=== PATIENT | male | born 1980 | race Caucasian/White ===

== ENCOUNTER 2018-04-26 21:48 | Inpatient (IN) ==
[2018-04-26] MEDS ORDERED: Sod Chloride 0.9% Inj 1,000 ML IV.SIG ONE (23:16)
[2018-04-26] MEDS ORDERED: Morphine Inj 4 MG/ML Vial IV.PUSH ONE (23:16)
--- NOTE | 2018-04-26 23:23 | ED ---
HPI General Chief Complaint: Abdominal Pain Stated Complaint: gu Time Seen by Provider: 04/26/18 23:16 Source: patient and old records reviewed Mode of arrival: ambulatory Limitations: no limitations History of Present Illness HPI narrative: Patient is a 37-year-old male with no medical history history of IV drug use presented with complaint of really dark urine and left flank pain. Denies any history of stones. Denies any alcohol abuse. Admits to doing Dilaudid earlier today. MD complaint: Reports flank pain Onset (ago): hour(s) (6) Pain Consistency: constant Location: Reports L flank Severity scale (1-10): 10 Quality: Reports stabbing Radiation: Reports none Migration to: Reports no migration Relieving factors: nothing Associated symptoms: Reports other (Dark urine) Related Data Home Medications Medication Instructions Recorded Confirmed No Known Home Medications 04/26/18 04/26/18 Allergies Allergy/AdvReac Type Severity Reaction Status Date / Time penicillin G Allergy Unknown does not Unverified 02/07/17 14:48 know Review of Systems ROS: all other systems reviewed are negative [facility] Medical History Medical History History of wisdom tooth extraction (Acute) Patient denies significant medical history (Acute) Social History Social History Substance History: Active Abuse Smoking Status: Current every day smoker Tobacco Type: Cigarettes How Often Do You Have a Drink Containing Alcohol: Never Recent Travel in [facility] within the Last 8 Weeks: No Recent Out of Country Travel within the Last 8 Weeks: No Substance Abuse Detail Opiates: Substance Use Status: Active Route Used Substance Abuse: Intravenously Reason for Use: Feels Good and Get High Immunization History Tetanus Immunization: Unsure Exam Narrative Exam Narrative: GENERAL: Alert and oriented in no distress SKIN: Focused skin assessment warm/dry. HEAD: Atraumatic. Normocephalic. EYES: Pupils equal and round. No scleral icterus. No injection or drainage. ENT: No nasal bleeding or discharge. Mucous membranes pink and moist. NECK: Trachea midline. No JVD. CARDIOVASCULAR: Regular rate and rhythm. No murmur appreciated. RESPIRATORY: No accessory muscle use. Clear to auscultation. Breath sounds equal bilaterally. GASTROINTESTINAL: Abdomen soft, non-tender, nondistended. Hepatic and splenic margins not palpable. MUSCULOSKELETAL: No obvious deformities. No clubbing. No cyanosis. No edema. NEUROLOGICAL: Awake and alert. No obvious cranial nerve deficits. Motor grossly within normal limits. Normal speech. PSYCHIATRIC: Appropriate mood and affect; insight and judgment normal. Course Initial Documented Vital Signs Temperature 98.2 F 04/26/18 22:12 Pulse Rate 79 04/26/18 22:12 Respiratory Rate 16 04/26/18 22:12 Blood Pressure 138/83 04/26/18 22:12 Pulse Oximetry 98 04/26/18 22:12 Last Documented Vital Signs Temperature 98.2 F 04/26/18 22:12 Pulse Rate 79 04/26/18 22:12 Respiratory Rate 18 04/27/18 04:17 Blood Pressure 138/83 04/26/18 22:12 Pulse Oximetry 98 04/26/18 22:12 Medical Decision Making MDM Narrative Medical decision making narrative: Patient with markedly elevated liver enzymes suggestive of acute hepatitis. There is no signs of obstruction of the biliary tree on ultrasound. His CT abdomen pelvis was unremarkable. Patient denies any history of alcohol abuse and his MCV appears to be within normal limits. He does admit to IV drug use and is possible he may be having hepatitis C. Medical Screen Exam Complete: Yes Emergency Medical Condition: Yes Medical Records Medical records reviewed: Yes I reviewed the patient's medical records. Lab Data Lab results reviewed: Yes I reviewed the patient's lab results. Result diagrams: 04/26/18 23:30 04/26/18 23:30 Lab Results 04/26/18 04/26/18 04/26/18 Range/Units 23:30 23:30 23:30 WBC 8.9 (4.0-11.0) th/mm3 RBC 5.20 (4.50-5.90) mil/mm3 Hgb 15.6 (13.0-17.0) gm/dL Hct 45.5 (39.0-51.0) % MCV 87.4 (80.0-100.0) fL MCH 30.0 (27.0-34.0) pg MCHC 34.3 (32.0-36.0) % RDW 12.8 (11.6-17.2) % Plt Count 136 L (150-450) th/mm3 MPV 10.4 (7.0-11.0) fL Neut % (Auto) 78.8 H (16.0-70.0) % Lymph % (Auto) 12.1 (9.0-44.0) % Camp % (Auto) 6.9 (0.0-8.0) % Eos % (Auto) 1.8 (0.0-4.0) % Baso % (Auto) 0.4 (0.0-2.0) % Neut # (Auto) 7.0 (1.8-7.7) th/mm3 Lymph # (Auto) 1.1 (1.0-4.8) th/mm3 Camp # (Auto) 0.6 (0.0-0.9) th/mm3 Eos # (Auto) 0.2 (0.0-0.4) th/mm3 Baso # (Auto) 0.0 (0.0-0.2) th/mm3 WBC Differential . Differential Comment Auto diff final Sodium 134 L (136-145) meq/L Potassium 3.9 (3.5-5.1) meq/L Chloride 98 (98-107) meq/L Carbon Dioxide 27.4 (21.0-32.0) meq/L Anion Gap 9 (5-15) meq/L BUN 15 (7-18) mg/dL Creatinine 0.89 (0.60-1.30) mg/dL Estimated GFR Greater than 89 (>89) mL/min Random Glucose 92 (74-106) mg/dL Calcium 9.0 (8.5-10.1) mg/dL Total Bilirubin (0.2-1.0) mg/dL Direct Bilirubin (0.0-0.2) mg/dL Indirect Bilirubin (0.0-0.8) mg/dL AST (15-37) U/L ALT (12-78) U/L Alkaline Phosphatase (45-117) U/L Total Creatine Kinase 116 (39-308) U/L Total Protein (6.4-8.2) g/dL Albumin (3.4-5.0) g/dL Lipase (73-393) U/L Urine Color Chen (Yellw/Straw) Urine Clarity Clear (Clear) Urine pH 5.0 (5.0-8.5) Ur Specific Rake 1.020 (1.002-1.035) Urine Protein Negative (Neg-Trace) mg/dL Urine Glucose (UA) Negative (Negative) mg/dL Urine Ketones Trace H (Negative) mg/dL Urine Occult Blood Negative (Negative) Urine Nitrate Negative (Negative) Urine Bilirubin Small H (Negative) Urine Ictotest Positive H (Negative) Urine Urobilinogen 4 or greater (Less than 2) mg/dL Ur Leukocyte Esterase Negative (Negative) Urine WBC Less than 1 (0-5) /hpf Calcium Oxalate Crystal Rare H (None) /hpf Hyaline Casts 3 (0-3) /lpf Urine Mucus Few H (Occasional) /lpf Micro UA Comment Culture not ind Ur Microscopic Review Not Reportable Urine Culture Comments Culture not ind 04/26/18 04/26/18 Range/Units 23:30 23:30 WBC (4.0-11.0) th/mm3 RBC (4.50-5.90) mil/mm3 Hgb (13.0-17.0) gm/dL Hct (39.0-51.0) % MCV (80.0-100.0) fL MCH (27.0-34.0) pg MCHC (32.0-36.0) % RDW (11.6-17.2) % Plt Count (150-450) th/mm3 MPV (7.0-11.0) fL Neut % (Auto) (16.0-70.0) % Lymph % (Auto) (9.0-44.0) % Camp % (Auto) (0.0-8.0) % Eos % (Auto) (0.0-4.0) % Baso % (Auto) (0.0-2.0) % Neut # (Auto) (1.8-7.7) th/mm3 Lymph # (Auto) (1.0-4.8) th/mm3 Camp # (Auto) (0.0-0.9) th/mm3 Eos # (Auto) (0.0-0.4) th/mm3 Baso # (Auto) (0.0-0.2) th/mm3 WBC Differential Differential Comment Sodium (136-145) meq/L Potassium (3.5-5.1) meq/L Chloride (98-107) meq/L Carbon Dioxide (21.0-32.0) meq/L Anion Gap (5-15) meq/L BUN (7-18) mg/dL Creatinine (0.60-1.30) mg/dL Estimated GFR (>89) mL/min Random Glucose (74-106) mg/dL Calcium (8.5-10.1) mg/dL Total Bilirubin 5.4 H (0.2-1.0) mg/dL Direct Bilirubin 4.1 H (0.0-0.2) mg/dL Indirect Bilirubin 1.3 H (0.0-0.8) mg/dL AST 838 H (15-37) U/L ALT 1711 H (12-78) U/L Alkaline Phosphatase 215 H (45-117) U/L Total Creatine Kinase (39-308) U/L Total Protein 8.6 H (6.4-8.2) g/dL Albumin 4.0 (3.4-5.0) g/dL Lipase 36 L (73-393) U/L Urine Color (Yellw/Straw) Urine Clarity (Clear) Urine pH (5.0-8.5) Ur Specific Rake (1.002-1.035) Urine Protein (Neg-Trace) mg/dL Urine Glucose (UA) (Negative) mg/dL Urine Ketones (Negative) mg/dL Urine Occult Blood (Negative) Urine Nitrate (Negative) Urine Bilirubin (Negative) Urine Ictotest (Negative) Urine Urobilinogen (Less than 2) mg/dL Ur Leukocyte Esterase (Negative) Urine WBC (0-5) /hpf Calcium Oxalate Crystal (None) /hpf Hyaline Casts (0-3) /lpf Urine Mucus (Occasional) /lpf Micro UA Comment Ur Microscopic Review Urine Culture Comments Imaging Data Radiologist's impression: Abdomen/Pelvis CT 04/26/18 23:16 CONCLUSION: No evidence of acute abdominal or pelvic process. No masses are identified. Gallbladder Ultrasound 04/27/18 02:43 CONCLUSION: 1. Negative ultrasound of the abdomen Discharge Plan Discharge Disposition Patient Disposition: 30 Still Patient Discharge Condition Condition: Stable Discharge Details Diagnosis: Acute hepatitis Physicians Team ED Provider: Robin Schrader Primary Care Provider: Primary Care Lauren Ball Attending Provider: Jeferson Ferrer Other Providers: Juan Miguel Jones Status ED Status: Admitted Patient
[2018-04-26 23:55] LABS: Baso % (Auto) 0.4 % (0.0-2.0); Eos # (Auto) 0.2 th/mm3 (0.0-0.4); Eos % (Auto) 1.8 % (0.0-4.0); Hematocrit 45.5 % (39.0-51.0); Hemoglobin 15.6 gm/dL (13.0-17.0); Lymph # (Auto) 1.1 th/mm3 (1.0-4.8); Lymph % (Auto) 12.1 % (9.0-44.0); Mean Corpuscular HGB Conc 34.3 % (32.0-36.0); Mean Corpuscular Volume 87.4 fL (80.0-100.0); Mean Platelet Volume 10.4 fL (7.0-11.0); Mono # (Auto) 0.6 th/mm3 (0.0-0.9); Mono % (Auto) 6.9 % (0.0-8.0); Neut % (Auto) 78.8 % (16.0-70.0); Platelet Count 136 th/mm3 (150-450); Red Cell Distribution Width 12.8 % (11.6-17.2); White Blood Count 8.9 th/mm3 (4.0-11.0)
[2018-04-26 23:58] LABS: Bilirubin,Urine Small (Negative); Calcium Oxalate Crystals,Urine Rare /hpf; Clarity,Urine Clear (Clear); Color,Urine Amber (Yellw/Straw); Glucose,Urine (UA) Negative (Negative); Hyaline Casts,Urine 3 /lpf (0-3); Leukocyte Esterase,Urine Negative (Negative); Mucus,Urine Few /lpf (Occasional); Nitrite,Urine Negative (Negative); Urobilinogen,Urine 4 or Greater mg/dL (Less than 2)
[2018-04-27] LABS: Ictotest,Urine Positive (Negative)
--- NOTE | 2018-04-27 00:09 | CT ---
EXAM DATE: 04/26/2018 11:56 PM EDT AGE/SEX: 37 years / Male INDICATIONS: Left flank pain. CLINICAL DATA: This is the patient's initial encounter. Patient reports that signs and symptoms have been present for 1 day and indicates a pain score of 8/10. MEDICAL/SURGICAL HISTORY: None. None. RADIATION DOSE: 8.42 CTDI (mGy) COMPARISON: No prior exams available for comparison. TECHNIQUE: Multiple contiguous axial images were obtained through the abdomen. Images were obtained using multiple row detector helical technique. Using automated exposure control and adjustment of the mA and/or kV according to patient size, radiation dose was kept as low as reasonably achievable to o btain optimal diagnostic quality images. DICOM format image data is available electronically for rev iew and comparison. FINDINGS: Examination of the lung bases demonstrates no abnormality. No pleural fluid is identified. No pulmona ry nodules are present. The liver and spleen are free of focal defects. The gallbladder and pancreas demonstrate no abnormality. The adrenal glands are normal. The kidneys demonstrate no evidence of ramonita id renal mass or hydronephrosis. No free fluid or abdominal masses are identified. No para-aortic helen nopathy is seen. The appendix is identified and appears normal. Examination of the pelvis demonstrates no evidence of free fluid or pelvic mass. No abnormally enlarg ed inguinal or retroperitoneal lymph nodes are present. The bladder is unremarkable. CONCLUSION: No evidence of acute abdominal or pelvic process. No masses are identified. Electronically signed by: Tiago Romano MD 04/27/2018 12:07 AM EDT
[2018-04-27 00:22] LABS: Anion Gap 9 meq/L (5-15); Blood Urea Nitrogen 15 mg/dL (7-18); Carbon Dioxide 27.4 meq/L (21.0-32.0); Chloride 98 meq/L (98-107); Glomerular Filtration Rate Greater Than 89 mL/min (>89); Glucose,Random 92 mg/dL (74-106); Potassium 3.9 meq/L (3.5-5.1); Sodium 134 meq/L (136-145)
[2018-04-27 00:25] LABS: Creatine Kinase 116 U/L (39-308)
[2018-04-27 02:28] LABS: Total Protein 8.6 g/dL (6.4-8.2)
[2018-04-27] MEDS ORDERED: Morphine Inj 4 MG/ML Vial IV.PUSH ONE (03:31)
--- NOTE | 2018-04-27 05:19 | US ---
EXAM DATE: 04/27/2018 5:05 AM EDT AGE/SEX: 37 years / Male INDICATIONS: Right upper quadrant pain. Bilirubinemia. CLINICAL DATA: This is the patient's subsequent encounter. Patient reports that signs and symptoms h ave been present for 1 day and indicates a pain score of 8/10. MEDICAL/SURGICAL HISTORY: . Substance abuse. Smoker. . [place] tooth extraction. COMPARISON: No prior exams available for comparison. MEASUREMENTS: Liver:__ 17.8 cm. Common Bile Duct:__ 5mm. FINDINGS: Liver: Normal echotexture without focal lesion or ductal dilatation. Portal Vein: Hepatopedal flow seen in portal vein. Common Duct: No intraluminal mass or stone visualized. Gallbladder: Demonstrates no wall thickening or pericholecystic fluid. No stones visualized. Pancreas: The visualized portions are within normal limits Right Kidney: Normal echotexture and cortical thickness. No mass or hydronephrosis. Other: None. CONCLUSION: 1. Negative ultrasound of the abdomen Electronically signed by: Tiago Romano MD 04/27/2018 5:18 AM EDT
[2018-04-27] MEDS ORDERED: Bisacodyl 10 MG Supp RECTAL PRN (05:59)
[2018-04-27] MEDS: Sod Chloride 0.9% Inj 1,000 ML IV.CONT SCH ×2 (06:21→18:33)
[2018-04-27 06:43] LABS: INR 1.1 Ratio; Prothrombin Time 11.5 sec (9.8-11.6)
[2018-04-27 08:51] LABS: Amphetamine Screen,Urine Neg (Neg); Barbiturate Screen,Urine Neg (Neg); Cannabinoid Screen,Urine Pos (Neg); Cocaine Screen,Urine Pos (Neg)
[2018-04-27 08:56] LABS: Opiate Screen,Urine Pos (Neg)
[2018-04-27 08:57] LABS: Hepatitis A IgM Antibody Nonreactive (Nonreactive)
[2018-04-27 10:15] LABS: Hepatitits B Surface Antigen Nonreactive (Nonreactive)
--- NOTE | 2018-04-27 12:01 | P.CONGI ---
History of Present Illness Consult date: 04/27/18 Consult reason: Acute hepatitis Chief complaint: Acute Hepatitis, Bilirubinemia History of Present Illness: This patient is a 37-year-old male with history of pulmonary embolism and IV drug use. Patient presented to [facility] on 04/27/2018 with complaint of dark urine times 2-3 days. Patient states he has never been told of any issues with his liver. On admission patient was noted to have hyperbilirubinemia with elevated liver enzymes. Our service has been consulted to evaluate patient for same. Patient denies EtOH use, states he smokes cigarettes 2 packs/day. Patient states he is current IV drug user, he uses Dilaudid IV 1-2 times daily and has been doing so for the last 10-11 years. He endorses that he overdosed on heroin 2 months ago. Patient denies any sharing of IV needles states he may have unknowingly used no needle that someone else used. Denies any tattoos, but does endorse high risk sexual behavior without condom use. Patient states his mother is positive for hep C undergoing treatment. Denies any prior having had an EGD or colonoscopy in the past. States he suffers from occasional constipation for which he uses [id number] laxatives with good effect. Denies any noted bleeding. Patient denies any use of NSAIDs or blood thinners. In regards to diagnosis of pulmonary embolism, patient states that he was instructed to and will occasionally take 1 full strength aspirin daily as he is not able to afford Xarelto. <Dee Leiva - Last Filed: 04/27/18 11:31> Review of Systems All other systems reviewed negative except as stated in HPI <Dee Leiva - Last Filed: 04/27/18 11:31> PMFSH - History History Provided By: Patient - Medical History Medical History: Medical History (Last Reviewed 04/27/18 @ 06:35 by Robin Schrader DO) History of wisdom tooth extraction Patient denies significant medical history - Tobacco History Second Hand Smoke Exposure: Yes Tobacco Use In Past 30 Days: Yes Smoking Status: Current every day smoker Tobacco Type: Cigarettes - Alcohol History How Often Do You Have a Drink Containing Alcohol: 2 to 3 times a week - Substance Use History Substance History: Active Abuse - Substance Use Type Opiates Status: Active Route Used: Intravenously Frequency: daily Last Used: 04-26-2018 Reason for Use: Calm Down, Get High - Travel History Recent Travel in the [place] Within the Last 8 Weeks: No Recent Travel Out of the Country Within the Last 8 Weeks: No - Immunization History Tetanus Immunization: Unsure Hx Influenza Vaccine This Season: No <Dee Leiva - Last Filed: 04/27/18 11:31> - Medical History Medical History: Medical History (Last Reviewed 04/27/18 @ 06:35 by Robin Schrader DO) History of wisdom tooth extraction Patient denies significant medical history <Herb Ruff - Last Filed: 04/27/18 17:18> Medications and Allergies Active Medications: Active Medications Al Hydroxide/Mg Hydroxide (Milk Of Magnesia Liq) 30 ml PO Q12H PRN PRN Reason: Mild Constipation Bisacodyl (Dulcolax Supp) 10 mg RECTAL DAILY PRN PRN Reason: SEVERE CONSITIPATION Sodium Chloride (Ns Inj) 1,000 mls @ 100 mls/hr IV.CONT .Q10H [facility] Last Admin: 04/27/18 06:21 Dose: 100 mls/hr Lactulose (Lactulose Liq) 30 ml PO DAILY PRN PRN Reason: SEVERE CONSITIPATION Ondansetron HCl (Zofran Inj) 4 mg IV.PUSH Q6H PRN PRN Reason: NAUSEA OR VOMITING Oxycodone HCl (Roxicodone) 10 mg PO Q4H PRN PRN Reason: Pain 6-10 Oxycodone HCl (Roxicodone) 5 mg PO Q4H PRN PRN Reason: PAIN 3-5; IF UABLE TO TAKE PO Senna/Docusate Sodium (Alondra-Colace) 1 tab PO BID [facility] Sennosides (Senokot) 17.2 mg PO Q12H PRN PRN Reason: Moderate Constipation <Dee Leiva - Last Filed: 04/27/18 11:31> Active Medications: Active Medications Al Hydroxide/Mg Hydroxide (Milk Of Magnesia Liq) 30 ml PO Q12H PRN PRN Reason: Mild Constipation Bisacodyl (Dulcolax Supp) 10 mg RECTAL DAILY PRN PRN Reason: SEVERE CONSITIPATION Enoxaparin Sodium (Lovenox Inj) 40 mg SQ DAILY [facility] Last Admin: 04/27/18 13:13 Dose: 40 mg Sodium Chloride (Ns Inj) 1,000 mls @ 100 mls/hr IV.CONT .Q10H [facility] Last Admin: 04/27/18 06:21 Dose: 100 mls/hr Lactulose (Lactulose Liq) 30 ml PO DAILY PRN PRN Reason: SEVERE CONSITIPATION Ondansetron HCl (Zofran Inj) 4 mg IV.PUSH Q6H PRN PRN Reason: NAUSEA OR VOMITING Oxycodone HCl (Roxicodone) 10 mg PO Q4H PRN PRN Reason: Pain 6-10 Oxycodone HCl (Roxicodone) 5 mg PO Q4H PRN PRN Reason: PAIN 3-5; IF UABLE TO TAKE PO Last Admin: 04/27/18 13:12 Dose: 5 mg Senna/Docusate Sodium (Alondra-Colace) 1 tab PO BID [facility] Last Admin: 04/27/18 13:02 Dose: Not Given Sennosides (Senokot) 17.2 mg PO Q12H PRN PRN Reason: Moderate Constipation <Herb Ruff E - Last Filed: 04/27/18 17:18> Allergies Allergy/AdvReac Type Severity Reaction Status Date / Time penicillin G Allergy Unknown does not Unverified 02/07/17 14:48 know Home Medications Medication Instructions Recorded Confirmed Type No Known Home Medications 04/26/18 04/26/18 History Exam Vital signs: Vital Signs 04/26/18 22:12 04/27/18 00:18 04/27/18 04:17 Temperature 98.2 F Pulse Rate 79 Respiratory Rate 16 15 18 Blood Pressure 138/83 Pulse Oximetry 98 04/27/18 07:26 04/27/18 08:00 Temperature 97.7 F Pulse Rate 88 73 Respiratory Rate 18 16 Blood Pressure 109/66 126/78 Pulse Oximetry 97 96 Intake & Output 04/26/18 04/27/18 04/27/18 18:59 06:59 18:59 Intake Total 1000 / 1000 Balance 1000 / 1000 Weight 74.843 kg 74.84 kg Intake: IV 1000 / 1000 NS Inj 1,000 ML @ Wide Open IV. 1000 / 1000 SIG BOLUS ONE Rx#:[id number] Other: Date of Last Bowel Movement 04/27/18 Weight On Admission 172.72 kg - Constitutional no acute distress - Routine HEENT Exam Head: Present: normocephalic Eye: Present: conjunctival icterus - Routine Neck Exam Present: supple - Routine Respiratory Exam Present: CTA bilaterally. Absent: accessory muscle use - Routine Cardiovascular Exam Present: RRR - Routine Abdominal Exam Present: soft, normoactive bowel sounds. Absent: tenderness, distended, guarding, firm - Routine Extremities Exam Present: pulses intact. Absent: edema - Routine Skin Exam Present: dry, warm - Routine Neurological Exam Present: alert, oriented X3 <Leiva,Dee - Last Filed: 04/27/18 11:31> Vital signs: Vital Signs 04/26/18 22:12 04/27/18 00:18 04/27/18 04:17 Temperature 98.2 F Pulse Rate 79 Respiratory Rate 16 15 18 Blood Pressure 138/83 Pulse Oximetry 98 04/27/18 07:26 04/27/18 08:00 04/27/18 12:00 Temperature 97.7 F 98.2 F Pulse Rate 88 73 64 Respiratory Rate 18 16 16 Blood Pressure 109/66 126/78 128/83 Pulse Oximetry 97 96 98 04/27/18 16:00 Temperature 98.5 F Pulse Rate 67 Respiratory Rate 16 Blood Pressure 114/69 Pulse Oximetry 97 Intake & Output 04/26/18 04/27/18 04/27/18 18:59 06:59 18:59 Intake Total 1000 / 1000 Balance 1000 / 1000 Weight 74.843 kg 74.84 kg Intake: IV 1000 / 1000 NS Inj 1,000 ML @ Wide Open IV. 1000 / 1000 SIG BOLUS ONE Rx#:[id number] Other: Date of Last Bowel Movement 04/27/18 Weight On Admission 172.72 kg <Herb Ruff - Last Filed: 04/27/18 17:18> Results - Labs CBC & Chem 7: 04/26/18 23:30 04/26/18 23:30 Labs: Laboratory Results - last 24 hr 04/26/18 04/26/18 04/26/18 23:30 23:30 23:30 WBC 8.9 RBC 5.20 Hgb 15.6 Hct 45.5 MCV 87.4 MCH 30.0 MCHC 34.3 RDW 12.8 Plt Count 136 L MPV 10.4 Neut % (Auto) 78.8 H Lymph % (Auto) 12.1 [place] % (Auto) 6.9 Eos % (Auto) 1.8 Baso % (Auto) 0.4 Neut # (Auto) 7.0 Lymph # (Auto) 1.1 [place] # (Auto) 0.6 Eos # (Auto) 0.2 Baso # (Auto) 0.0 WBC Differential . Differential Comment Auto diff final PT INR Sodium 134 L Potassium 3.9 Chloride 98 Carbon Dioxide 27.4 Anion Gap 9 BUN 15 Creatinine 0.89 Estimated GFR Greater than 89 Random Glucose 92 Calcium 9.0 Total Bilirubin Direct Bilirubin Indirect Bilirubin AST ALT Alkaline Phosphatase Total Creatine Kinase 116 Total Protein Albumin Lipase Urine Color Chen Urine Clarity Clear Urine pH 5.0 Ur Specific [place] 1.020 Urine Protein Negative Urine Glucose (UA) Negative Urine Ketones Trace H Urine Occult Blood Negative Urine Nitrate Negative Urine Bilirubin Small H Urine Ictotest Positive H Urine Urobilinogen 4 or greater Ur Leukocyte Esterase Negative Urine WBC Less than 1 Calcium Oxalate Crystal Rare H Hyaline Casts 3 Urine Mucus Few H Micro UA Comment Culture not ind Ur Microscopic Review Not Reportable Urine Culture Comments Culture not ind Urine Opiates Screen Acetaminophen Ur Barbiturates Screen Ur Amphetamines Screen U Benzodiazepines Scrn Urine Cocaine Screen U Cannabinoids Screen Serum Alcohol Hepatitis A IgM Ab Hep Bs Antigen Hep B Core IgM Ab Hep C IgG Ab 04/26/18 04/26/18 04/26/18 23:30 23:30 23:30 WBC RBC Hgb Hct MCV MCH MCHC RDW Plt Count MPV Neut % (Auto) Lymph % (Auto) [place] % (Auto) Eos % (Auto) Baso % (Auto) Neut # (Auto) Lymph # (Auto) [place] # (Auto) Eos # (Auto) Baso # (Auto) WBC Differential Differential Comment PT INR Sodium Potassium Chloride Carbon Dioxide Anion Gap BUN Creatinine Estimated GFR Random Glucose Calcium Total Bilirubin 5.4 H Direct Bilirubin 4.1 H Indirect Bilirubin 1.3 H AST 838 H ALT 1711 H Alkaline Phosphatase 215 H Total Creatine Kinase Total Protein 8.6 H Albumin 4.0 Lipase 36 L Urine Color Urine Clarity Urine pH Ur Specific [place] Urine Protein Urine Glucose (UA) Urine Ketones Urine Occult Blood Urine Nitrate Urine Bilirubin Urine Ictotest Urine Urobilinogen Ur Leukocyte Esterase Urine WBC Calcium Oxalate Crystal Hyaline Casts Urine Mucus Micro UA Comment Ur Microscopic Review Urine Culture Comments Urine Opiates Screen Pos H Acetaminophen Ur Barbiturates Screen Neg Ur Amphetamines Screen Neg U Benzodiazepines Scrn Neg Urine Cocaine Screen Pos H U Cannabinoids Screen Pos H Serum Alcohol Hepatitis A IgM Ab Hep Bs Antigen Hep B Core IgM Ab Hep C IgG Ab 04/27/18 04/27/18 04/27/18 06:20 06:20 06:20 WBC RBC Hgb Hct MCV MCH MCHC RDW Plt Count MPV Neut % (Auto) Lymph % (Auto) [place] % (Auto) Eos % (Auto) Baso % (Auto) Neut # (Auto) Lymph # (Auto) [place] # (Auto) Eos # (Auto) Baso # (Auto) WBC Differential Differential Comment PT 11.5 INR 1.1 Sodium Potassium Chloride Carbon Dioxide Anion Gap BUN Creatinine Estimated GFR Random Glucose Calcium Total Bilirubin Direct Bilirubin Indirect Bilirubin AST ALT Alkaline Phosphatase Total Creatine Kinase Total Protein Albumin Lipase Urine Color Urine Clarity Urine pH Ur Specific [place] Urine Protein Urine Glucose (UA) Urine Ketones Urine Occult Blood Urine Nitrate Urine Bilirubin Urine Ictotest Urine Urobilinogen Ur Leukocyte Esterase Urine WBC Calcium Oxalate Crystal Hyaline Casts Urine Mucus Micro UA Comment Ur Microscopic Review Urine Culture Comments Urine Opiates Screen Acetaminophen Less than 2.0 L Ur Barbiturates Screen Ur Amphetamines Screen U Benzodiazepines Scrn Urine Cocaine Screen U Cannabinoids Screen Serum Alcohol Hepatitis A IgM Ab Nonreactive Hep Bs Antigen Nonreactive Hep B Core IgM Ab Nonreactive Hep C IgG Ab Reactive H 04/27/18 06:20 WBC RBC Hgb Hct MCV MCH MCHC RDW Plt Count MPV Neut % (Auto) Lymph % (Auto) [place] % (Auto) Eos % (Auto) Baso % (Auto) Neut # (Auto) Lymph # (Auto) [place] # (Auto) Eos # (Auto) Baso # (Auto) WBC Differential Differential Comment PT INR Sodium Potassium Chloride Carbon Dioxide Anion Gap BUN Creatinine Estimated GFR Random Glucose Calcium Total Bilirubin Direct Bilirubin Indirect Bilirubin AST ALT Alkaline Phosphatase Total Creatine Kinase Total Protein Albumin Lipase Urine Color Urine Clarity Urine pH Ur Specific [place] Urine Protein Urine Glucose (UA) Urine Ketones Urine Occult Blood Urine Nitrate Urine Bilirubin Urine Ictotest Urine Urobilinogen Ur Leukocyte Esterase Urine WBC Calcium Oxalate Crystal Hyaline Casts Urine Mucus Micro UA Comment Ur Microscopic Review Urine Culture Comments Urine Opiates Screen Acetaminophen Ur Barbiturates Screen Ur Amphetamines Screen U Benzodiazepines Scrn Urine Cocaine Screen U Cannabinoids Screen Serum Alcohol Less than 3 Hepatitis A IgM Ab Hep Bs Antigen Hep B Core IgM Ab Hep C IgG Ab - Imaging Impressions Abdomen/Pelvis CT 04/26/18 23:16 CONCLUSION: No evidence of acute abdominal or pelvic process. No masses are identified. Gallbladder Ultrasound 04/27/18 02:43 CONCLUSION: 1. Negative ultrasound of the abdomen <LeivaDee - Last Filed: 04/27/18 11:31> - Labs CBC & Chem 7: 04/26/18 23:30 04/26/18 23:30 Labs: Laboratory Results - last 24 hr 04/26/18 04/26/18 04/26/18 23:30 23:30 23:30 WBC 8.9 RBC 5.20 Hgb 15.6 Hct 45.5 MCV 87.4 MCH 30.0 MCHC 34.3 RDW 12.8 Plt Count 136 L MPV 10.4 Neut % (Auto) 78.8 H Lymph % (Auto) 12.1 [place] % (Auto) 6.9 Eos % (Auto) 1.8 Baso % (Auto) 0.4 Neut # (Auto) 7.0 Lymph # (Auto) 1.1 [place] # (Auto) 0.6 Eos # (Auto) 0.2 Baso # (Auto) 0.0 WBC Differential . Differential Comment Auto diff final PT INR Sodium 134 L Potassium 3.9 Chloride 98 Carbon Dioxide 27.4 Anion Gap 9 BUN 15 Creatinine 0.89 Estimated GFR Greater than 89 Random Glucose 92 Calcium 9.0 Iron TIBC % Saturation Ferritin Total Bilirubin Direct Bilirubin Indirect Bilirubin AST ALT Alkaline Phosphatase Ammonia Total Creatine Kinase 116 Total Protein Albumin Lipase Tumor Marker AFP Urine Color Chen Urine Clarity Clear Urine pH 5.0 Ur Specific [place] 1.020 Urine Protein Negative Urine Glucose (UA) Negative Urine Ketones Trace H Urine Occult Blood Negative Urine Nitrate Negative Urine Bilirubin Small H Urine Ictotest Positive H Urine Urobilinogen 4 or greater Ur Leukocyte Esterase Negative Urine WBC Less than 1 Calcium Oxalate Crystal Rare H Hyaline Casts 3 Urine Mucus Few H Micro UA Comment Culture not ind Ur Microscopic Review Not Reportable Urine Culture Comments Culture not ind Urine Opiates Screen Acetaminophen Ur Barbiturates Screen Ur Amphetamines Screen U Benzodiazepines Scrn Urine Cocaine Screen U Cannabinoids Screen Serum Alcohol Hepatitis A IgM Ab Hep Bs Antigen Hep B Core IgM Ab Hepatitis C Antibody Hep C IgG Ab 04/26/18 04/26/18 04/26/18 23:30 23:30 23:30 WBC RBC Hgb Hct MCV MCH MCHC RDW Plt Count MPV Neut % (Auto) Lymph % (Auto) [place] % (Auto) Eos % (Auto) Baso % (Auto) Neut # (Auto) Lymph # (Auto) [place] # (Auto) Eos # (Auto) Baso # (Auto) WBC Differential Differential Comment PT INR Sodium Potassium Chloride Carbon Dioxide Anion Gap BUN Creatinine Estimated GFR Random Glucose Calcium Iron TIBC % Saturation Ferritin Total Bilirubin 5.4 H Direct Bilirubin 4.1 H Indirect Bilirubin 1.3 H AST 838 H ALT 1711 H Alkaline Phosphatase 215 H Ammonia Total Creatine Kinase Total Protein 8.6 H Albumin 4.0 Lipase 36 L Tumor Marker AFP Urine Color Urine Clarity Urine pH Ur Specific [place] Urine Protein Urine Glucose (UA) Urine Ketones Urine Occult Blood Urine Nitrate Urine Bilirubin Urine Ictotest Urine Urobilinogen Ur Leukocyte Esterase Urine WBC Calcium Oxalate Crystal Hyaline Casts Urine Mucus Micro UA Comment Ur Microscopic Review Urine Culture Comments Urine Opiates Screen Pos H Acetaminophen Ur Barbiturates Screen Neg Ur Amphetamines Screen Neg U Benzodiazepines Scrn Neg Urine Cocaine Screen Pos H U Cannabinoids Screen Pos H Serum Alcohol Hepatitis A IgM Ab Hep Bs Antigen Hep B Core IgM Ab Hepatitis C Antibody Hep C IgG Ab 04/27/18 04/27/18 04/27/18 06:20 06:20 06:20 WBC RBC Hgb Hct MCV MCH MCHC RDW Plt Count MPV Neut % (Auto) Lymph % (Auto) [place] % (Auto) Eos % (Auto) Baso % (Auto) Neut # (Auto) Lymph # (Auto) [place] # (Auto) Eos # (Auto) Baso # (Auto) WBC Differential Differential Comment PT 11.5 INR 1.1 Sodium Potassium Chloride Carbon Dioxide Anion Gap BUN Creatinine Estimated GFR Random Glucose Calcium Iron TIBC % Saturation Ferritin Total Bilirubin Direct Bilirubin Indirect Bilirubin AST ALT Alkaline Phosphatase Ammonia Total Creatine Kinase Total Protein Albumin Lipase Tumor Marker AFP Urine Color Urine Clarity Urine pH Ur Specific [place] Urine Protein Urine Glucose (UA) Urine Ketones Urine Occult Blood Urine Nitrate Urine Bilirubin Urine Ictotest Urine Urobilinogen Ur Leukocyte Esterase Urine WBC Calcium Oxalate Crystal Hyaline Casts Urine Mucus Micro UA Comment Ur Microscopic Review Urine Culture Comments Urine Opiates Screen Acetaminophen Less than 2.0 L Ur Barbiturates Screen Ur Amphetamines Screen U Benzodiazepines Scrn Urine Cocaine Screen U Cannabinoids Screen Serum Alcohol Hepatitis A IgM Ab Nonreactive Hep Bs Antigen Nonreactive Hep B Core IgM Ab Nonreactive Hepatitis C Antibody Hep C IgG Ab Reactive H 04/27/18 04/27/18 04/27/18 06:20 13:20 13:20 WBC RBC Hgb Hct MCV MCH MCHC RDW Plt Count MPV Neut % (Auto) Lymph % (Auto) [place] % (Auto) Eos % (Auto) Baso % (Auto) Neut # (Auto) Lymph # (Auto) [place] # (Auto) Eos # (Auto) Baso # (Auto) WBC Differential Differential Comment PT INR Sodium Potassium Chloride Carbon Dioxide Anion Gap BUN Creatinine Estimated GFR Random Glucose Calcium Iron 67 TIBC 309 % Saturation 21.7 Ferritin 764 H Total Bilirubin Direct Bilirubin Indirect Bilirubin AST ALT Alkaline Phosphatase Ammonia 31 Total Creatine Kinase Total Protein Albumin Lipase Tumor Marker AFP 1.3 Urine Color Urine Clarity Urine pH Ur Specific [place] Urine Protein Urine Glucose (UA) Urine Ketones Urine Occult Blood Urine Nitrate Urine Bilirubin Urine Ictotest Urine Urobilinogen Ur Leukocyte Esterase Urine WBC Calcium Oxalate Crystal Hyaline Casts Urine Mucus Micro UA Comment Ur Microscopic Review Urine Culture Comments Urine Opiates Screen Acetaminophen Ur Barbiturates Screen Ur Amphetamines Screen U Benzodiazepines Scrn Urine Cocaine Screen U Cannabinoids Screen Serum Alcohol Less than 3 Hepatitis A IgM Ab Hep Bs Antigen Hep B Core IgM Ab Hepatitis C Antibody Hep C IgG Ab 04/27/18 13:20 WBC RBC Hgb Hct MCV MCH MCHC RDW Plt Count MPV Neut % (Auto) Lymph % (Auto) [place] % (Auto) Eos % (Auto) Baso % (Auto) Neut # (Auto) Lymph # (Auto) [place] # (Auto) Eos # (Auto) Baso # (Auto) WBC Differential Differential Comment PT INR Sodium Potassium Chloride Carbon Dioxide Anion Gap BUN Creatinine Estimated GFR Random Glucose Calcium Iron TIBC % Saturation Ferritin Total Bilirubin Direct Bilirubin Indirect Bilirubin AST ALT Alkaline Phosphatase Ammonia Total Creatine Kinase Total Protein Albumin Lipase Tumor Marker AFP Urine Color Urine Clarity Urine pH Ur Specific [place] Urine Protein Urine Glucose (UA) Urine Ketones Urine Occult Blood Urine Nitrate Urine Bilirubin Urine Ictotest Urine Urobilinogen Ur Leukocyte Esterase Urine WBC Calcium Oxalate Crystal Hyaline Casts Urine Mucus Micro UA Comment Ur Microscopic Review Urine Culture Comments Urine Opiates Screen Acetaminophen Ur Barbiturates Screen Ur Amphetamines Screen U Benzodiazepines Scrn Urine Cocaine Screen U Cannabinoids Screen Serum Alcohol Hepatitis A IgM Ab Hep Bs Antigen Hep B Core IgM Ab Hepatitis C Antibody Reactive H Hep C IgG Ab - Imaging Impressions Abdomen/Pelvis CT 04/26/18 23:16 CONCLUSION: No evidence of acute abdominal or pelvic process. No masses are identified. Gallbladder Ultrasound 04/27/18 02:43 CONCLUSION: 1. Negative ultrasound of the abdomen <Herb Ruff - Last Filed: 04/27/18 17:18> Assessment and Plan (1) Acute hepatitis Status: Acute Code(s): B17.9 - Acute viral hepatitis, unspecified - Plan his patient is a 37-year-old male with history of pulmonary embolism and IV drug use. Patient presented to [facility] on 04/27/2018 with complaint of dark urine times 2-3 days. Patient states he has never been told of any issues with his liver. On admission patient was noted to have hyperbilirubinemia with elevated liver enzymes. Our service has been consulted to evaluate patient for same. Patient denies EtOH use, states he smokes cigarettes 2 packs/day. Patient states he is current IV drug user, he uses Dilaudid IV 1-2 times daily and has been doing so for the last 10-11 years. He endorses that he overdosed on heroin 2 months ago. Patient denies any sharing of IV needles states he may have unknowingly used no needle that someone else used. Denies any tattoos, but does endorse high risk sexual behavior without condom use. Patient states his mother is positive for hep C undergoing treatment. Denies any prior having had an EGD or colonoscopy in the past. States he suffers from occasional constipation for which he uses [id number] laxatives with good effect. Denies any noted bleeding. Patient denies any use of NSAIDs or blood thinners. In regards to diagnosis of pulmonary embolism, patient states that he was instructed to and will occasionally take 1 full strength aspirin daily as he is not able to afford Xarelto. Acute hepatitis As per history, patient at risk for hepatitis due to IV drug use and high risk sexual behaviors. WBC 8.9 hemoglobin 15.6 hematocrit 45.5 INR 1.1 total bilirubin 5.4 direct bilirubin 4.1 indirect bilirubin 1.3 AST 838 ALT 1711 alk phos 215. Hepatitis C IgG antibody reactive. Hepatitis A and B nonreactive. Ultrasound gallbladder revealed the following--- Liver: Normal echotexture without focal lesion or ductal dilatation. Portal Vein: Hepatopedal flow seen in portal vein. Common Duct: No intraluminal mass or stone visualized. Gallbladder: Demonstrates no wall thickening or pericholecystic fluid. No stones visualized. Pancreas: The visualized portions are within normal limits Right Kidney: Normal echotexture and cortical thickness. No mass or hydronephrosis. CT abdomen and pelvis--No evidence of acute abdominal or pelvic process. No masses are identified. Plan -Diet as tolerated -Full liver workup -Monitor labs -Illicit drug cessation -Lactulose -Supportive care -Further recommendations to follow This patient has been seen by myself and Dr. Ruff and this note is written on his behalf - Attending Attestation Dr. Ruff <Dee Leiva - Last Filed: 04/27/18 11:31> (1) Acute hepatitis Status: Acute Code(s): B17.9 - Acute viral hepatitis, unspecified - Plan Patient seen and examined Agree with above Monitor labs Continue with current supportive care Acute hepatitis etiology unclear although his serology is come back positive for hepatitis C this may or may not be acute hepatitis C Workup in progress and further recommendations shall follow but the patient was encouraged to stop all drug abuse <Herb Ruff - Last Filed: 04/27/18 17:18>
--- NOTE | 2018-04-27 12:56 | P.HPIM ---
History of Present Illness Primary Care Physician: No Primary Care Physician Chief Complaint: Abdominal pain History of Present Illness: The patient is a 37-year-old male with past medical history of IV drug use who is presenting to the hospital with nausea, vomiting, diarrhea and abdominal pain. The patient states that he has noticed his urine turned brown about 2-3 days ago. He says last night he helped his sister move and following that he started to experience abdominal pain. He says the pain was located on the left side of his flank area and was rated at a 6 out of 10 in severity. He said he then developed nausea and vomiting. He said his vomitus was brown in color. He says he did not eat well all day yesterday, only having a [employer] bar. He says he also had diarrhea all day yesterday and the diarrhea was brown and milky in color. The patient says he has had some shortness of breath since being in the hospital. He denies any recent medication changes. He says he has been around a friend who is on hospice for kidney and liver failure. He says he overdosed on heroin a couple of months ago. He says that he was diagnosed with pulmonary embolism at that time but has not been taking anticoagulants because he cannot afford it. He says he has been taking aspirin in lieu of anticoagulation. Inpatient Certification: I certify that the inpatient services were ordered in accordance with Medicare regulations governing the order. This includes certification that hospital inpatient services are reasonable and necessary and in the case of services not specified as inpatient-only under 42 CFR 419.22(n), that they are appropriately provided as inpatient services in accordance to with the 2-midnight benchmark under 43 CFR 412.3(e) Estimated Total Length of Stay (Days): 2 Plans for Post Hospital Care: Not yet determined Review of Systems All other systems reviewed negative except as stated [facility] - History History Provided By: Patient - Medical History Medical History: Medical History (Last Updated 04/27/18 @ 12:55 by Jeferson Ferrer DO) Depression Heroin overdose History of wisdom tooth extraction Loss of teeth due to extraction Pulmonary embolism - Family History Family History: Family History (Last Updated 04/27/18 @ 12:56 by Jeferson Ferrer DO) Other CAD (coronary artery disease) - Social History I have reviewed the patient's Social History: Yes - Tobacco History Second Hand Smoke Exposure: Yes Tobacco Use In Past 30 Days: Yes Smoking Status: Current every day smoker Tobacco Type: Cigarettes - Alcohol History How Often Do You Have a Drink Containing Alcohol: Never - Substance Use History Substance History: Active Abuse - Substance Use Type Opiates Status: Active Route Used: Intravenously Frequency: daily Last Used: 04-26-2018 Reason for Use: Calm Down, Get High - Travel History Recent Travel in the [place] Within the Last 8 Weeks: No Recent Travel Out of the Country Within the Last 8 Weeks: No - Immunization History Tetanus Immunization: Unsure Hx Influenza Vaccine This Season: No Medications and Allergies Active Medications: Active Medications Al Hydroxide/Mg Hydroxide (Milk Of Magnesia Liq) 30 ml PO Q12H PRN PRN Reason: Mild Constipation Bisacodyl (Dulcolax Supp) 10 mg RECTAL DAILY PRN PRN Reason: SEVERE CONSITIPATION Enoxaparin Sodium (Lovenox Inj) 40 mg SQ DAILY [facility] Sodium Chloride (Ns Inj) 1,000 mls @ 100 mls/hr IV.CONT .Q10H [facility] Last Admin: 04/27/18 06:21 Dose: 100 mls/hr Lactulose (Lactulose Liq) 30 ml PO DAILY PRN PRN Reason: SEVERE CONSITIPATION Ondansetron HCl (Zofran Inj) 4 mg IV.PUSH Q6H PRN PRN Reason: NAUSEA OR VOMITING Oxycodone HCl (Roxicodone) 10 mg PO Q4H PRN PRN Reason: Pain 6-10 Oxycodone HCl (Roxicodone) 5 mg PO Q4H PRN PRN Reason: PAIN 3-5; IF UABLE TO TAKE PO Senna/Docusate Sodium (Alondra-Colace) 1 tab PO BID [facility] Sennosides (Senokot) 17.2 mg PO Q12H PRN PRN Reason: Moderate Constipation Allergies Allergy/AdvReac Type Severity Reaction Status Date / Time penicillin G Allergy Unknown does not Unverified 02/07/17 14:48 know Home Medications Medication Instructions Recorded Confirmed Type No Known Home Medications 04/26/18 04/26/18 History Exam Vital signs: Vital Signs 04/26/18 22:12 04/27/18 00:18 04/27/18 04:17 Temperature 98.2 F Pulse Rate 79 Respiratory Rate 16 15 18 Blood Pressure 138/83 Pulse Oximetry 98 04/27/18 07:26 04/27/18 08:00 04/27/18 12:00 Temperature 97.7 F 98.2 F Pulse Rate 88 73 64 Respiratory Rate 18 16 16 Blood Pressure 109/66 126/78 128/83 Pulse Oximetry 97 96 98 Intake & Output 04/26/18 04/27/18 04/27/18 18:59 06:59 18:59 Intake Total 1000 / 1000 Balance 1000 / 1000 Weight 74.843 kg 74.84 kg Intake: IV 1000 / 1000 NS Inj 1,000 ML @ Wide Open IV. 1000 / 1000 SIG BOLUS ONE Rx#:[id number] Other: Date of Last Bowel Movement 04/27/18 Weight On Admission 172.72 kg Narrative: GENERAL: No distress. SKIN: Focused skin assessment warm/dry. HEAD: Atraumatic. Normocephalic. EYES: Pupils equal and round. No scleral icterus. No injection or drainage. ENT: No nasal bleeding or discharge. Mucous membranes pink and moist. NECK: Trachea midline. No JVD. CARDIOVASCULAR: Regular rate and rhythm. No murmur appreciated. RESPIRATORY: No accessory muscle use. Clear to auscultation. Breath sounds equal bilaterally. GASTROINTESTINAL: Abdomen soft, mildly tender in the RUQ, nondistended. MUSCULOSKELETAL: No obvious deformities. No clubbing. No cyanosis. No edema. NEUROLOGICAL: Awake and alert. No obvious cranial nerve deficits. Motor grossly within normal limits. Normal speech. Results - Labs CBC & Chem 7: 04/26/18 23:30 04/26/18 23:30 Labs: Short CBC 04/26/18 Range/Units 23:30 WBC 8.9 (4.0-11.0) th/mm3 Hgb 15.6 (13.0-17.0) gm/dL Hct 45.5 (39.0-51.0) % Plt Count 136 L (150-450) th/mm3 BMP 04/26/18 23:30 Sodium 134 L Potassium 3.9 Chloride 98 Carbon Dioxide 27.4 BUN 15 Creatinine 0.89 Calcium 9.0 Cardiac Enzymes 04/26/18 Range/Units 23:30 Total Creatine Kinase 116 (39-308) U/L Liver Function 04/26/18 Range/Units 23:30 Total Bilirubin 5.4 H (0.2-1.0) mg/dL Direct Bilirubin 4.1 H (0.0-0.2) mg/dL AST 838 H (15-37) U/L ALT 1711 H (12-78) U/L Alkaline Phosphatase 215 H (45-117) U/L Albumin 4.0 (3.4-5.0) g/dL Urine 04/26/18 Range/Units 23:30 Urine Color Chen (Yellw/Straw) Urine Clarity Clear (Clear) Urine pH 5.0 (5.0-8.5) Ur Specific [place] 1.020 (1.002-1.035) Urine Protein Negative (Neg-Trace) mg/dL Urine Glucose (UA) Negative (Negative) mg/dL - Imaging Impressions Abdomen/Pelvis CT 04/26/18 23:16 CONCLUSION: No evidence of acute abdominal or pelvic process. No masses are identified. Gallbladder Ultrasound 04/27/18 02:43 CONCLUSION: 1. Negative ultrasound of the abdomen Caprini VTE Risk Assessment Caprini VTE Risk Assessment: Moderate/High Risk (score >= 2) Caprini Risk Assessment Model: Point Value = 1 Point Value = 2 Point Value = 3 Point Value = 5 Age 41-60 Minor surgery BMI > 25 kg/m2 Swollen legs Varicose veins or History of unexplained or recurrent spontaneous Oral contraceptives or hormone replacement Sepsis (< 1 month) Serious lung disease, including pneumonia (< 1 month) Abnormal pulmonary function Acute myocardial infarction Congestive heart failure (< 1 month) History of inflammatory bowel disease Medical patient at bed rest Age 61-74 Arthroscopic surgery Major open surgery (> 45 min) Laparoscopic surgery (> 45 min) Malignancy Confined to bed (> 72 hours) Immobilizing plaster cast Central venous access Age >= 75 History of VTE Family history of VTE Factor V Leiden Prothrombin [id number] Lupus anticoagulant Anticardiolipin antibodies Elevated serum homocysteine Heparin-induced thrombocytopenia Other congenital or acquired thrombophilia Stroke (< 1 month) Elective arthroplasty Hip, pelvis, or leg fracture Acute spinal cord injury (< 1 month) Prophylaxis Regimen: Total Risk Factor Score Risk Level Prophylaxis Regimen 0-1 Low Early ambulation 2 Moderate Order ONE of the following: *Sequential Compression Device (SCD) *Heparin 5000 units SQ BID 3-4 Higher Order ONE of the following medications: *Heparin 5000 units SQ TID *Enoxaparin/Lovenox 40 mg SQ daily (WT < 150 kg, CrCl > 30 mL/min) *Enoxaparin/Lovenox 30 mg SQ daily (WT < 150 kg, CrCl > 10-29 mL/min) *Enoxaparin/Lovenox 30 mg SQ BID (WT < 150 kg, CrCl > 30 mL/min) AND/OR *Sequential Compression Device (SCD) 5 or more Highest Order ONE of the following medications: *Heparin 5000 units SQ TID (Preferred with Epidurals) *Enoxaparin/Lovenox 40 mg SQ daily (WT < 150 kg, CrCl > 30 mL/min) *Enoxaparin/Lovenox 30 mg SQ daily (WT < 150 kg, CrCl > 10-29 mL/min) *Enoxaparin/Lovenox 30 mg SQ BID (WT < 150 kg, CrCl > 30 mL/min) AND *Sequential Compression Device (SCD) Assessment and Plan - Plan Acute hepatitis Hepatitis panel positive for HCV. The pt is an IV drug user. CT and US of the abdomen unremarkable. GI consult appreciated. -follow up with GI. -pain control with a bowel regimen. -IVFs. -trend LFTs. IVDU The pt uses Dilaudid IV daily. He overdosed on heroin a couple of months ago. -cessation instruction. -case management consult. Pulmonary embolism The pt says he had a blood clot in his lungs when he was brought in for the heroin overdose two months ago. He was discharged on Xarelto and did not take it because he could not afford it. He has been taking ASA twice daily instead. When asked about resuming anticoagulation he said he would prefer to continue ASA because he has been doing well on it. -Lovenox at regular prophylactic dose for now. Will not start full strength anticoagulation at this time as the pt does not want it. Will reassess daily. -oxygen and nebs as needed. Nicotine dependance The pt smokes 1-2 packs daily. -cessation instruction. PPx: Lovenox H&P: Quality - VTE Deep Vein Thrombosis/Pulmonary Embolism Present on Admission: No
[2018-04-27] MEDS: Senna/Docusate Sodium 8.6/50 MG Tablet PO SCH ×2 (13:02→21:19)
[2018-04-27] MEDS: Enoxaparin Inj 40 MG/0.4 ML Syringe SQ SCH (13:13)
[2018-04-27 14:08] LABS: % Iron Saturation 21.7 % (20-50); Alpha Fetoprotein Tumor Marker 1.3 ng/mL (0.5-8.0)
[2018-04-27] MEDS ORDERED: Melatonin 5 MG Tablet PO PRN (18:15)
[2018-04-28] MEDS: Sod Chloride 0.9% Inj 1,000 ML IV.CONT SCH (03:34)
[2018-04-28 06:15] LABS: Alanine Aminotransferase 884 U/L (12-78); Albumin 3.1 g/dL (3.4-5.0); Alkaline Phosphatase 172 U/L (45-117); Anion Gap 12 meq/L (5-15); Aspartate Aminotransferase 231 U/L (15-37); Blood Urea Nitrogen 11 mg/dL (7-18); Calcium 8.2 mg/dL (8.5-10.1); Carbon Dioxide 23.1 meq/L (21.0-32.0); Chloride 106 meq/L (98-107); Glomerular Filtration Rate Greater Than 89 mL/min (>89); Glucose,Random 81 mg/dL (74-106); Potassium 4.1 meq/L (3.5-5.1); Sodium 141 meq/L (136-145); Total Protein 7.1 g/dL (6.4-8.2)
[2018-04-28] MEDS: Enoxaparin Inj 40 MG/0.4 ML Syringe SQ SCH (08:15)
[2018-04-28] MEDS: Senna/Docusate Sodium 8.6/50 MG Tablet PO SCH (08:15)
[2018-04-28 10:17] LABS: Baso % (Auto) 0.2 % (0.0-2.0); Eos # (Auto) 0.1 th/mm3 (0.0-0.4); Eos % (Auto) 0.9 % (0.0-4.0); Hematocrit 42.3 % (39.0-51.0); Hemoglobin 14.2 gm/dL (13.0-17.0); Lymph # (Auto) 1.9 th/mm3 (1.0-4.8); Lymph % (Auto) 26.2 % (9.0-44.0); Mean Corpuscular HGB Conc 33.6 % (32.0-36.0); Mean Corpuscular Hemoglobin 29.8 pg (27.0-34.0); Mean Corpuscular Volume 88.6 fL (80.0-100.0); Mean Platelet Volume 10.5 fL (7.0-11.0); Mono # (Auto) 0.4 th/mm3 (0.0-0.9); Mono % (Auto) 5.6 % (0.0-8.0); Neut # (Auto) 4.9 th/mm3 (1.8-7.7); Neut % (Auto) 67.1 % (16.0-70.0); Platelet Count 144 th/mm3 (150-450); Red Blood Count 4.77 mil/mm3 (4.50-5.90); Red Cell Distribution Width 13.2 % (11.6-17.2); White Blood Count 7.4 th/mm3 (4.0-11.0)
--- NOTE | 2018-04-28 11:21 | CT ---
EXAM DATE: 04/28/2018 11:12 AM EDT AGE/SEX: 37 years / Male INDICATIONS: Short of breath. CLINICAL DATA: This is the patient's initial encounter. Patient reports that signs and symptoms have been present for 2 days and indicates a pain score of 0/10. MEDICAL/SURGICAL HISTORY: . Pulmonary embolism. None. RADIATION DOSE: 10.07 CTDI (mGy) COMPARISON: No prior exams available for comparison. TECHNIQUE: Volumetric scanning was performed using a multi-row detector CT scanner during bolus infu alex of 65 ml Omnipaque 350 (iohexol) nonionic water-soluble contrast as a single exam dose. The sascha a was post processed with a variety of visualization algorithms including full volume maximum intensi ty projection and sliding thin slab reformation. Using automated exposure control and adjustment of the mA and/or kV according to patient size, radiation dose was kept as low as reasonably achievable t o obtain optimal diagnostic quality images. DICOM format image data is available electronically for review and comparison. FINDINGS: Pulmonary Arteries: No filling defects are seen in the pulmonary arteries out to the subsegmental ve ssels. The left and right pulmonary arteries are normal in diameter. Lung: Minimal scarring and emphysematous changes of the lung apices. Lungs otherwise clear. Effusion: None. Mediastinum: No evidence of mediastinal or hilar adenopathy. Other: The axilla is unremarkable. CONCLUSION: 1. No evidence of pulmonary embolus. 2. Minimal scarring and emphysema at the lung apices. Electronically signed by: Sudeep Mcneil MD 04/28/2018 11:19 AM EDT
--- NOTE | 2018-04-28 12:24 | P.AMA ---
AMA Note - Diagnosis (1) Hepatitis (2) IVDU (intravenous drug user) (3) Pulmonary emboli Recommended Treatment Course: Stop IV drug use Stop illegal drug use Stop alcohol Stop tobacco Follow-up with primary care physician VAISHALI Statement: Patient Loki Reynolds has decided to leave the hospital against medical advice. This patient has the capacity to refuse care and understands the risks of leaving, including permanent disability and/or , and has had an opportunity to ask questions about his/her condition. The patient has been informed that he/she may return for care at any time, and follow up has been arranged/advised. Discharge Disposition: Against Medical Advice Patient Condition on Discharge: Stable
--- NOTE | 2018-04-28 12:27 | P.DS ---
Date of admission: 04/27/18 05:59 Primary care physician: No Primary Care Physician Attending physician on discharge: Yonathan Saxena Anticipated date of discharge: 04/28/18 Brief History from admission: The patient is a 37-year-old male with past medical history of IV drug use who is presenting to the hospital with nausea, vomiting, diarrhea and abdominal pain. The patient states that he has noticed his urine turned brown about 2-3 days ago. He says last night he helped his sister move and following that he started to experience abdominal pain. He says the pain was located on the left side of his flank area and was rated at a 6 out of 10 in severity. He said he then developed nausea and vomiting. He said his vomitus was brown in color. He says he did not eat well all day yesterday, only having a [employer] bar. He says he also had diarrhea all day yesterday and the diarrhea was brown and milky in color. The patient says he has had some shortness of breath since being in the hospital. He denies any recent medication changes. He says he has been around a friend who is on hospice for kidney and liver failure. He says he overdosed on heroin a couple of months ago. He says that he was diagnosed with pulmonary embolism at that time but has not been taking anticoagulants because he cannot afford it. He says he has been taking aspirin in lieu of anticoagulation. Patient update on day of discharge: Chief Complaint: Abdominal pain History of Present Illness: The patient is a 37-year-old male with past medical history of IV drug use who is presenting to the hospital with nausea, vomiting, diarrhea and abdominal pain. The patient states that he has noticed his urine turned brown about 2-3 days ago. He says last night he helped his sister move and following that he started to experience abdominal pain. He says the pain was located on the left side of his flank area and was rated at a 6 out of 10 in severity. He said he then developed nausea and vomiting. He said his vomitus was brown in color. He says he did not eat well all day yesterday, only having a [employer] bar. He says he also had diarrhea all day yesterday and the diarrhea was brown and milky in color. The patient says he has had some shortness of breath since being in the hospital. He denies any recent medication changes. He says he has been around a friend who is on hospice for kidney and liver failure. He says he overdosed on heroin a couple of months ago. He says that he was diagnosed with pulmonary embolism at that time but has not been taking anticoagulants because he cannot afford it. He says he has been taking aspirin in lieu of anticoagulation. Patient decided to leave AGAINST MEDICAL ADVICE Prior to leaving AGAINST MEDICAL ADVICE and his CTA pulmonary which shows no pulmonary embolism in bilateral lungs Patient had not been taking any Xarelto or Eliquis anyways and had on occasion been taking an aspirin only No pulmonary embolis were noted on the CTA pulmonary now DS: Diagnosis - Discharge Diagnosis (1) Hepatitis Status: Acute (2) IVDU (intravenous drug user) Status: Acute (3) Pulmonary emboli Status: Acute DS: Summary Hospital Course: Chief Complaint: Abdominal pain History of Present Illness: The patient is a 37-year-old male with past medical history of IV drug use who is presenting to the hospital with nausea, vomiting, diarrhea and abdominal pain. The patient states that he has noticed his urine turned brown about 2-3 days ago. He says last night he helped his sister move and following that he started to experience abdominal pain. He says the pain was located on the left side of his flank area and was rated at a 6 out of 10 in severity. He said he then developed nausea and vomiting. He said his vomitus was brown in color. He says he did not eat well all day yesterday, only having a Parvin[employer] bar. He says he also had diarrhea all day yesterday and the diarrhea was brown and milky in color. The patient says he has had some shortness of breath since being in the hospital. He denies any recent medication changes. He says he has been around a friend who is on hospice for kidney and liver failure. He says he overdosed on heroin a couple of months ago. He says that he was diagnosed with pulmonary embolism at that time but has not been taking anticoagulants because he cannot afford it. He says he has been taking aspirin in lieu of anticoagulation. Patient decided to leave AGAINST MEDICAL ADVICE Prior to leaving AGAINST MEDICAL ADVICE and his CTA pulmonary which shows no pulmonary embolism in bilateral lungs Patient had not been taking any Xarelto or Eliquis anyways and had on occasion been taking an aspirin only No pulmonary embolis were noted on the CTA pulmonary now - Time Spent with Patient Total time spent providing and/or coordinating discharge services: Less than 30 minutes - Quality: VTE Deep Vein Thrombosis/Pulmonary Embolism Present on Admission: No Exam Vital signs: Vital Signs 04/27/18 16:00 04/27/18 20:00 04/28/18 00:00 Temperature 98.5 F 98.1 F 97.8 F Pulse Rate 67 65 70 Respiratory Rate 16 16 17 Blood Pressure 114/69 120/74 119/71 Pulse Oximetry 97 98 99 04/28/18 08:00 Temperature 98.1 F Pulse Rate 80 Respiratory Rate 18 Blood Pressure 121/60 Pulse Oximetry 98 Intake & Output 04/27/18 04/28/18 04/28/18 18:59 06:59 18:59 Intake Total 1060 / 1060 1000 / 1000 Output Total 500 / 500 Balance 1060 / 1060 500 / 500 Weight 74.84 kg 75.2 kg Intake: IV 100 / 100 1000 / 1000 NS Inj 1,000 ML @ 100 mls/hr IV 100 / 100 1000 / 1000 .CONT .Q10H VIDYA Rx#:[id number] Oral 960 / 960 Output: Urine 500 / 500 Other: # Voids 5 4 Date of Last Bowel Movement 04/27/18 04/27/18 # Bowel Movements 1 1 Weight On Admission 172.72 kg Narrative: Left AMA No exam Results Procedures completed during hospitalization: CTA of chest negative for any pulmonary emboli Completed studies during hospitalization: Laboratory Results WBC 7.4 th/mm3 (4.0-11.0) 04/28/18 08:45 RBC 4.77 mil/mm3 (4.50-5.90) 04/28/18 08:45 Hgb 14.2 gm/dL (13.0-17.0) 04/28/18 08:45 Hct 42.3 % (39.0-51.0) 04/28/18 08:45 MCV 88.6 fL (80.0-100.0) 04/28/18 08:45 MCH 29.8 pg (27.0-34.0) 04/28/18 08:45 MCHC 33.6 % (32.0-36.0) 04/28/18 08:45 RDW 13.2 % (11.6-17.2) 04/28/18 08:45 Plt Count 144 th/mm3 (150-450) L 04/28/18 08:45 MPV 10.5 fL (7.0-11.0) 04/28/18 08:45 Neut % (Auto) 67.1 % (16.0-70.0) 04/28/18 08:45 Lymph % (Auto) 26.2 % (9.0-44.0) 04/28/18 08:45 Delta % (Auto) 5.6 % (0.0-8.0) 04/28/18 08:45 Eos % (Auto) 0.9 % (0.0-4.0) 04/28/18 08:45 Baso % (Auto) 0.2 % (0.0-2.0) 04/28/18 08:45 Neut # (Auto) 4.9 th/mm3 (1.8-7.7) 04/28/18 08:45 Lymph # (Auto) 1.9 th/mm3 (1.0-4.8) 04/28/18 08:45 Delta # (Auto) 0.4 th/mm3 (0.0-0.9) 04/28/18 08:45 Eos # (Auto) 0.1 th/mm3 (0.0-0.4) 04/28/18 08:45 Baso # (Auto) 0.0 th/mm3 (0.0-0.2) 04/28/18 08:45 WBC Differential . 04/28/18 08:45 Differential Comment Auto diff final 04/28/18 08:45 PT 11.5 sec (9.8-11.6) 04/27/18 06:20 INR 1.1 Ratio 04/27/18 06:20 Sodium 141 meq/L (136-145) 04/28/18 04:22 Potassium 4.1 meq/L (3.5-5.1) 04/28/18 04:22 Chloride 106 meq/L (98-107) D 04/28/18 04:22 Carbon Dioxide 23.1 meq/L (21.0-32.0) 04/28/18 04:22 Anion Gap 12 meq/L (5-15) 04/28/18 04:22 BUN 11 mg/dL (7-18) 04/28/18 04:22 Creatinine 0.82 mg/dL (0.60-1.30) 04/28/18 04:22 Estimated GFR Greater than 89 mL/min (>89) 04/28/18 04:22 Random Glucose 81 mg/dL (74-106) 04/28/18 04:22 Calcium 8.2 mg/dL (8.5-10.1) L D 04/28/18 04:22 Iron 67 mcg/dL (65-175) 04/27/18 13:20 TIBC 309 mcg/dL (250-450) 04/27/18 13:20 % Saturation 21.7 % (20-50) 04/27/18 13:20 Ferritin 764 ng/mL (26-388) H 04/27/18 13:20 Total Bilirubin 3.1 mg/dL (0.2-1.0) H 04/28/18 04:22 Direct Bilirubin 4.1 mg/dL (0.0-0.2) H 04/26/18 23:30 Indirect Bilirubin 1.3 mg/dL (0.0-0.8) H 04/26/18 23:30 AST 231 U/L (15-37) H 04/28/18 04:22 ALT 884 U/L (12-78) H 04/28/18 04:22 Alkaline Phosphatase 172 U/L (45-117) H 04/28/18 04:22 Ammonia 31 mcmol/L (11-32) 04/27/18 13:20 Total Creatine Kinase 116 U/L (39-308) 04/26/18 23:30 Total Protein 7.1 g/dL (6.4-8.2) D 04/28/18 04:22 Albumin 3.1 g/dL (3.4-5.0) L D 04/28/18 04:22 Lipase 36 U/L (73-393) L 04/26/18 23:30 Tumor Marker AFP 1.3 ng/mL (0.5-8.0) 04/27/18 13:20 Urine Color Chen (Yellw/Straw) 04/26/18 23:30 Urine Clarity Clear (Clear) 04/26/18 23:30 Urine pH 5.0 (5.0-8.5) 04/26/18 23:30 Ur Specific Secor 1.020 (1.002-1.035) 04/26/18 23:30 Urine Protein Negative mg/dL (Neg-Trace) 04/26/18 23:30 Urine Glucose (UA) Negative mg/dL (Negative) 04/26/18 23:30 Urine Ketones Trace mg/dL (Negative) H 04/26/18 23:30 Urine Occult Blood Negative (Negative) 04/26/18 23:30 Urine Nitrate Negative (Negative) 04/26/18 23:30 Urine Bilirubin Small (Negative) H 04/26/18 23:30 Urine Ictotest Positive (Negative) H 04/26/18 23:30 Urine Urobilinogen 4 or greater mg/dL (Less than 2) 04/26/18 23:30 Ur Leukocyte Esterase Negative (Negative) 04/26/18 23:30 Urine WBC Less than 1 /hpf (0-5) 04/26/18 23:30 Calcium Oxalate Crystal Rare /hpf (None) H 04/26/18 23:30 Hyaline Casts 3 /lpf (0-3) 04/26/18 23:30 Urine Mucus Few /lpf (Occasional) H 04/26/18 23:30 Micro UA Comment Culture not ind 04/26/18 23:30 Ur Microscopic Review Not Reportable 04/26/18 23:30 Urine Culture Comments Culture not ind 04/26/18 23:30 Urine Opiates Screen Pos (Neg) H 04/26/18 23:30 Acetaminophen Less than 2.0 mcg/mL (10.0-30.0) L 04/27/18 06:20 Ur Barbiturates Screen Neg (Neg) 04/26/18 23:30 Ur Amphetamines Screen Neg (Neg) 04/26/18 23:30 U Benzodiazepines Scrn Neg (Neg) 04/26/18 23:30 Urine Cocaine Screen Pos (Neg) H 04/26/18 23:30 U Cannabinoids Screen Pos (Neg) H 04/26/18 23:30 Serum Alcohol Less than 3 mg/dL (0-5) 04/27/18 06:20 Hepatitis A IgM Ab Nonreactive (Nonreactive) 04/27/18 06:20 Hep Bs Antigen Nonreactive (Nonreactive) 04/27/18 06:20 Hep B Core IgM Ab Nonreactive (Nonreactive) 04/27/18 06:20 Hepatitis C Antibody Reactive (Nonreactive) H 04/27/18 13:20 Hep C IgG Ab Reactive (Nonreactive) H 04/27/18 06:20 Impressions Abdomen/Pelvis CT 04/26/18 23:16 CONCLUSION: No evidence of acute abdominal or pelvic process. No masses are identified. Gallbladder Ultrasound 04/27/18 02:43 CONCLUSION: 1. Negative ultrasound of the abdomen Chest CTA 04/28/18 00:00 CONCLUSION: 1. No evidence of pulmonary embolus. 2. Minimal scarring and emphysema at the lung apices. Labs on day of discharge: Labs from last 24 hours 04/28/18 04/28/18 04/27/18 08:45 04:22 20:00 WBC 7.4 RBC 4.77 Hgb 14.2 Hct 42.3 MCV 88.6 MCH 29.8 MCHC 33.6 RDW 13.2 Plt Count 144 L MPV 10.5 Neut % (Auto) 67.1 Lymph % (Auto) 26.2 Delta % (Auto) 5.6 Eos % (Auto) 0.9 Baso % (Auto) 0.2 Neut # (Auto) 4.9 Lymph # (Auto) 1.9 Delta # (Auto) 0.4 Eos # (Auto) 0.1 Baso # (Auto) 0.0 WBC Differential . Differential Comment Auto diff final Sodium 141 Potassium 4.1 Chloride 106 D Carbon Dioxide 23.1 Anion Gap 12 BUN 11 Creatinine 0.82 Estimated GFR Greater than 89 Random Glucose 81 Calcium 8.2 L D Iron TIBC % Saturation Ferritin Total Bilirubin 3.1 H AST 231 H ALT 884 H Alkaline Phosphatase 172 H Ammonia Total Protein 7.1 D Albumin 3.1 L D Ceruloplasmin Tumor Marker AFP Stool [id number] Pending Rheumatoid Factor CLARENCE Screen CLARENCE Pattern SS-A Antibody SS-B Antibody Sm (Shields) Antibody SM/WALL CLEANER Antibody Scl-70 Antibody Anti-ds DNA (Crithidia) Mitochondria M2 IgG Ab Anti-Smooth Muscle Ab Hepatitis C Antibody HCV RNA (PCR) IUs/ml HCV RNA PCR log IUs/ml 04/27/18 04/27/18 04/27/18 13:20 13:20 13:20 WBC RBC Hgb Hct MCV MCH MCHC RDW Plt Count MPV Neut % (Auto) Lymph % (Auto) Delta % (Auto) Eos % (Auto) Baso % (Auto) Neut # (Auto) Lymph # (Auto) Delta # (Auto) Eos # (Auto) Baso # (Auto) WBC Differential Differential Comment Sodium Potassium Chloride Carbon Dioxide Anion Gap BUN Creatinine Estimated GFR Random Glucose Calcium Iron TIBC % Saturation Ferritin Total Bilirubin AST ALT Alkaline Phosphatase Ammonia Total Protein Albumin Ceruloplasmin Pending Tumor Marker AFP Stool [id number] Rheumatoid Factor Pending CLARENCE Screen Pending CLARENCE Pattern Pending SS-A Antibody Pending SS-B Antibody Pending Sm (Shields) Antibody Pending SM/WALL CLEANER Antibody Pending Scl-70 Antibody Pending Anti-ds DNA (Crithidia) Pending Mitochondria M2 IgG Ab Pending Anti-Smooth Muscle Ab Pending Hepatitis C Antibody Reactive H HCV RNA (PCR) IUs/ml Pending HCV RNA PCR log IUs/ml Pending 04/27/18 04/27/18 13:20 13:20 WBC RBC Hgb Hct MCV MCH MCHC RDW Plt Count MPV Neut % (Auto) Lymph % (Auto) Delta % (Auto) Eos % (Auto) Baso % (Auto) Neut # (Auto) Lymph # (Auto) Delta # (Auto) Eos # (Auto) Baso # (Auto) WBC Differential Differential Comment Sodium Potassium Chloride Carbon Dioxide Anion Gap BUN Creatinine Estimated GFR Random Glucose Calcium Iron 67 TIBC 309 % Saturation 21.7 Ferritin 764 H Total Bilirubin AST ALT Alkaline Phosphatase Ammonia 31 Total Protein Albumin Ceruloplasmin Tumor Marker AFP 1.3 Stool [id number] Rheumatoid Factor CLARENCE Screen CLARENCE Pattern SS-A Antibody SS-B Antibody Sm (Shields) Antibody SM/WALL CLEANER Antibody Scl-70 Antibody Anti-ds DNA (Crithidia) Mitochondria M2 IgG Ab Anti-Smooth Muscle Ab Hepatitis C Antibody HCV RNA (PCR) IUs/ml HCV RNA PCR log IUs/ml - Impressions ITS Impressions Abdomen/Pelvis CT 04/26/18 23:16 CONCLUSION: No evidence of acute abdominal or pelvic process. No masses are identified. Gallbladder Ultrasound 04/27/18 02:43 CONCLUSION: 1. Negative ultrasound of the abdomen Chest CTA 04/28/18 00:00 CONCLUSION: 1. No evidence of pulmonary embolus. 2. Minimal scarring and emphysema at the lung apices. Discharge Plan - Discharge Disposition Patient Disposition: 07 Against Medical Advice - Discharge Condition Condition: Stable - Discharge Order Discharge Orders: Discharge Order (Routine); Ordered 04/28/18 Ordered By: Yonathan Saxena - Discharge Details Anticipated Discharge Date: 04/28/18 Discharge Comment: Patient left AGAINST MEDICAL ADVICE - Physicians Team Primary Care Provider: Primary Care Lauren Ball Attending Provider: Yonathan Saxena Other Providers: Juan Miguel Jones MD
[2018-04-28 14:24] LABS: Smooth Muscle Total Auto Abs Negative (Negative)
[2018-04-29 17:50] LABS: Ceruloplasmin 50 mg/dL (18-36)
[2018-04-29 23:51] LABS: DS DNA Ab (Crithidia) NEGATIVE (NEGATIVE)
== END 2018-04-28 13:19 | disposition left against medical advice (07) ==
LOC: NEPC 21:48 → NEDA 04-27 05:59 → N06 04-27 08:17
PROVIDERS: ADMIT Hospitalist; ATTEND Hospitalist